=== PATIENT | male | born 1985 | race Caucasian/White ===

== ENCOUNTER 2016-11-28 23:27 | Emergency (ER) | payer OTHER ==
[~2016-11-28] VITALS: Ht 175.3 cm; Wt 153.5 kg
[2016-11-28 23:29] VITALS: BP 158/85; PULSE 79; TEMP 36.9; O2SAT 95; Ht 175.3 cm; Wt 153.5 kg
--- NOTE | 2016-11-29 02:03 | EMERGENCY ROOM VISIT NOTE ---
History Report prepared by Mikki: Nhna Handy Under the Supervision of: Dr. Enrique Licea D.O. First contact with patient: 23:42 Chief Complaint: ANKLE PAIN Stated Complaint: PAIN IN LEFT ANKLE, PAIN/NUMBNESS IN RT KNEE History of Present Illness The patient is a 31 year old male who presents to the Emergency Room with complaints of constant left ankle pain due to a fall beginning ten hours prior to arrival. He currently rates his discomfort as a 7/10 in severity. Pain is worse on the lateral aspect of his ankle. The patient states he fell down 3-4 steps earlier today. He was talking to his mom and he turned around and tripped and fell. He states he hit his head but did not lose consciousness. He does not take any blood thinners. The patient also associates intermittent right knee pain that has been going on for several months. The patient states his right knee will go numb intermittently with pins and needles. He currently has no right knee pain at this time. Pt denies hip pain, headache, change in vision, fevers, chest pain, shortness of breath, abdominal pain, nausea vomiting , blood in the urine. Patient has been ambulating without difficulty on his left ankle. Source of History: patient Onset: ten hours [employer] Position: ankle (left) Symptom Intensity: 7/10 Timing: constant Note: Associated symptoms: intermittent right knee pain. Review of Systems See HPI for pertinent positives & negatives. A total of 10 systems reviewed and were otherwise negative. Past Medical & Surgical Medical Problems: (1) TOBACCO USE DISORDER (2) Tonsillectomy Family History FH: cancer FH: diabetes mellitus FH: gallbladder disease FH: heart disease FH: hypertension FH: kidney disease FH: lung disease FH: seizures No significant family history Social History Smoking Status: Current Some Day Smoker Alcohol Use: occasionally Drug Use: none Marital Status: single Housing Status: lives with family Occupation Status: employed Allergies Coded Allergies: Amoxicillin (Verified Adverse Reaction, Mild, diarrhea, 11/28/16) Clavulanic Acid (Verified Adverse Reaction, Mild, diarrhea, 11/28/16) Physical Exam Vital Signs Date Time Temp Pulse Resp B/P Pulse Ox O2 Delivery O2 Flow Rate FiO2 11/28/16 23:29 36.9 79 20 158/85 95 Room Air Physical Exam GENERAL: alert, well appearing, well nourished, no distress, non-toxic HEAD: normal cephalic, atraumatic EYE EXAM: normal conjunctiva, PERRL and EOM's grossly intact OROPHARYNX: no exudate, no erythema, lips, buccal mucosa, and tongue normal and mucous membranes are moist NOSE: No septal hematoma NECK: supple, no nuchal rigidity, no adenopathy, non-tender CHEST: stable to compression anteriorly and posteriorly LUNGS: clear to auscultation. Normal chest wall mechanics HEART: no murmurs, S1 normal and S2 normal ABDOMEN: abdomen soft, non-tender, normo-active bowel sounds, no masses, no rebound or guarding. PELVIS: stable to compression anteriorly and posteriorly BACK: Back is symmetrical on inspection and there is no deformity, no midline tenderness, no CVA tenderness. UPPER EXTREMITIES: full active and passive range of motion of all joints without tenderness to palpation LOWER EXTREMITIES: Left ankle tenderness over the left later malleolus with mild swelling and medial malleolus. No tenderness at the base of the fifth metatarsal. No tenderness over the arch of the foot. Skin is intact. Achilles is intact. Full active and passive range of motion of all other joints without tenderness to palpation NEURO EXAM: Normal sensorium, cranial nerves II-XII grossly intact, normal speech, no gross weakness of arms, no gross weakness of legs. GCS: 15. Medical Decision & Procedures ER Provider Diagnostic Interpretation: XRAY:Left ankle: A 3 view study was reviewed, no acute fracture or dislocation was seen. XRAY:Right knee: A 3 view study was reviewed, no acute fracture or dislocation was seen. ED Course ED COURSE: Vital signs were reviewed and showed hypertension. The patients medical record was reviewed The above diagnostic studies were performed and reviewed. ED treatments and interventions as stated above. 2344: The patient was evaluated in room C11B. A complete history and physical examination was performed. 0020: Upon reevaluation, the patient is doing well.I discussed my findings with the patient and he understands and agrees with the treatment plan. Based on the patients age, coexisting illnesses, exam and lab findings the decision to treat as an outpatient was made. The patient remained stable while under my care. The patient appeared well at the time of discharge. Medical Decision Differential diagnoses include major intracranial, cervical, spinal, thoracic, abdominal, pelvic and neurologic injury. Fracture, contusion, sprain, strain, laceration, abrasions included as well. Patient is a 31-year-old male who presents following a mechanical fall on the steps at 1 PM today. He currently has no headache or neck pain. His exam is completely benign with exception of tenderness over the lateral aspect of his left malleolus and mild tenderness over his medial malleolus. He has been ambulating on his ankle all day. He is otherwise completed and neurologically intact. His GCS is 15. He is close to 10 hours out from the incident and has no headache or neck pain. I did not feel the need to CT his head at this time. His exam was otherwise completely benign. Declined Motrin. X-rays of his left ankle and right knee showed no acute fractures. I updated both the patient and his mother in regards to this. I gave him crutches and instructed him to wear a soft soled shoe/tennis shoe for the next 3-5 days. If he continues to have pain over the next 5 days he will need repeat x-rays to make sure we did not miss a hairline fracture. He was discharged with crutches and is able to bear weight as tolerated. While having pain and recommended using the crutches until his pain resolves. Mother requested a work note for today and tomorrow. I offered a note stating that the patient was seen in the ER and can bear weight as tolerated but could not write him an excuse. I informed her that it was up to him and his employer to decide whether he could work or not. Following this all their questions were answered and he was discharged with crutches. Discussed with Pt concerning signs and symptoms to watch out for. Pt was instructed to follow up with their PCP and discussed with the patient their option to return to the ED at anytime for persistent or worsening symptoms. The appropriate anticipatory guidance and out-patient management, including indications for return to the emergency department, were explained at length to the patient and understood. Shortly after they left I was notified that mom was upset because he did not get a excuse from work for today and tomorrow. Impression Primary Impression: Left ankle sprain Scribe Attestation The scribe's documentation has been prepared under my direction and personally reviewed by me in its entirety. I confirm that the note above accurately reflects all work, treatment, procedures, and medical decision making performed by me. Departure Information Dispostion Home / Self-Care Referrals No Doctor, Assigned (PCP) Forms HOME CARE DOCUMENTATION FORM, IMPORTANT VISIT INFORMATION Patient Instructions Ankle Sprain, My [facility] Additional Instructions Please follow up with your primary care doctor with in the next 24 hours. Any worsening of your symptoms, please return to the ED immediately. This includes increased pain or swelling, numbness or weakness in the leg or any other concerning signs or symptoms from your standpoint. If you continue to have pain over the next 5 days he will need repeat x-rays. Please weight-bear as tolerated. Please wear a loose tennis sneaker as needed for support. Problem Qualifiers Primary Impression: Left ankle sprain Encounter type: initial encounter Involved ligament of ankle: unspecified ligament Qualified Codes: S93.402A - Sprain of unspecified ligament of left ankle, initial encounter
--- NOTE | 2016-11-29 07:18 | DIAGNOSTIC IMAGING REPORT ---
RIGHT KNEE 3 VIEWS HISTORY: right knee pain Right COMPARISON: None. FINDINGS: There is no fracture or dislocation. Small knee effusion. No radiopaque foreign bodies. IMPRESSION: No fractures. Small knee effusion. Electronically signed by: Felix Paris M.D. 11/29/2016 7:16 AM Dictated Date/Time: 11/29/2016 7:14 AM
--- NOTE | 2016-11-29 07:19 | DIAGNOSTIC IMAGING REPORT ---
LEFT ANKLE 3 VIEWS HISTORY: Left ankle pain. COMPARISON: Left ankle 03/08/2016. FINDINGS: There is no fracture or dislocation. Diffuse soft tissue swelling. No radiopaque foreign bodies. IMPRESSION: No fractures. Electronically signed by: Felix Paris M.D. 11/29/2016 7:17 AM Dictated Date/Time: 11/29/2016 7:16 AM
== END 2016-11-29 00:30 | disposition home or self-care (01) ==
LOC: C.EDB 23:28 → C.EDC 11-29 00:30
DX: S93.402A Sprain of unspecified ligament of left ankle, initial encounter (principal); W10.9XXA Fall (on) (from) unspecified stairs and steps, initial encounter; F17.200 Nicotine dependence, unspecified, uncomplicated

== ENCOUNTER 2017-12-09 21:08 | Emergency (ER) | payer SELFPAY ==
[~2017-12-09] VITALS: Ht 175.3 cm; Wt 162.5 kg
[2017-12-09 21:47] VITALS: BP 136/79; PULSE 90; TEMP 36.8; O2SAT 95; Ht 175.3 cm; Wt 162.5 kg
--- NOTE | 2017-12-09 22:55 | EMERGENCY ROOM VISIT NOTE ---
History First contact with patient: 22:11 Chief Complaint: BACK PAIN Stated Complaint: BACK PAIN History of Present Illness The patient is a 32 year old male who presents to the Emergency Room with complaints of low back pain. 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 He states that the pain is sharp and knifelike and is located in the lower portion of the back on the right side. The pain does not radiate into his leg. It does radiate slightly up into the mid back. He rates the discomfort as 7/10 and states it is worse when he is sitting upright, or bending forward or side to side. He denies any bowel/bladder incontinence, numbness, weakness or paresthesias. He took 5 pills of 200 mg ibuprofen without relief. He denies any history of back problems, but does state that he goes to a chiropractor every 2 weeks to get his back adjusted on a preventative basis. He denies any abdominal pain, nausea, vomiting or urinary symptoms. Review of Systems A complete 10 point review of systems was reviewed with the patient with pertinent positives and negatives as per history of present illness. All else were negative. Past Medical/Surgical History Medical Problems: (1) TOBACCO USE DISORDER (2) Tonsillectomy Family History FH: cancer FH: diabetes mellitus FH: gallbladder disease FH: heart disease FH: hypertension FH: kidney disease FH: lung disease FH: seizures No significant family history Social History Smoking Status: Never Smoker Alcohol Use: occasionally Drug Use: none Marital Status: single Housing Status: lives with family Occupation Status: employed Physical Exam Vital Signs Date Time Temp Pulse Resp B/P (MAP) Pulse Ox O2 Delivery O2 Flow Rate FiO2 12/09/17 21:47 36.8 90 16 136/79 95 Room Air Physical Exam VITALS: Vitals are noted on the nurse's note and reviewed by myself. Vital signs stable. GENERAL: This is a 32-year-old male, in no acute distress, nondiaphoretic, well- developed well-nourished. SKIN: The skin was without rashes. HEART: Regular rate and rhythm without murmurs gallops or rubs. LUNGS: Clear to auscultation bilaterally without wheezes, rales or rhonchi. ABDOMEN: No tenderness to palpation. MUSCULOSKELETAL: There is mild tenderness to palpation in the right lumbar region. There is no tenderness over the lumbar spinous processes. Full range of motion of bilateral lower extremities. Patellar reflexes 2+. NEURO: Patient was alert and oriented to person place and time. Normal sensation of bilateral lower extremities. Medical Decision & Procedures Medical Decision Differential diagnosis includes cauda equina syndrome, cord compression, disc herniation, muscle spasm, lumbar strain, epidural abscess, malignancy, transverse myelitis, urinary tract infection, colitis, diverticulitis, kidney stone, among others. The patient was evaluated as above. He presents with right-sided low back pain. There is nothing to suggest cauda equina syndrome or cord compression on exam. I had a lengthy discussion with the patient regarding his symptoms. His pain is likely secondary to a musculoskeletal strain. I offered Flexeril, but the patient declined. I recommended some [id number]-utpmwqg treatments and other conservative measures. The patient will follow up with his primary care provider if symptoms do not improve or worsen. He understands to return here if he develops numbness, weakness, bowel/bladder incontinence or other new/ concerning symptoms. He verbalized understanding of my assessment and treatment plan and was discharged home in good condition. Medication Reconcilliation Current Medication List: was personally reviewed by me Blood Pressure Screening Patient's blood pressure: Normal blood pressure Impression Primary Impression: Strain of lumbar region Departure Information Dispostion Home / Self-Care Condition GOOD Referrals No Doctor, Assigned (PCP) Patient Instructions My [facility] Additional Instructions You have been treated in the Emergency Department for Back Pain. You should begin taking naproxen (Aleve) [id number] twice daily for the next 10-14 days. For pain control, you can use the following vubz-rhu-[id number] medicines (if >12 yo): -Extra strength (500 mg/tab) Tylenol (acetaminophen) 2 tabs every 6 hours as needed. Do not exceed 12 tablets in a 24 hour period. Avoid taking more than 4 grams (4000 mg) of Tylenol per day. This includes any other sources of acetaminophen you may take on a regular basis. A heating pad can be used over the area for continued soothing relief. You may also use mqos-zsm-oivmvdn icy hot or Ben[place] on the area. You should schedule a follow-up appointment in 2-3 days with your Primary Care Provider for further evaluation and treatment of your back pain. Return to the Emergency Department if your current symptoms worsen despite treatment course outlined above, or if you develop any of the following symptoms : intractable pain despite aforementioned treatment course, loss of control of your bowel or bladder, numbness or tingling in your groin, or development of a fever. Problem Qualifiers Primary Impression: Strain of lumbar region Encounter type: initial encounter Qualified Codes: S39.012A - Strain of muscle, fascia and tendon of lower back, initial encounter
== END 2017-12-09 23:08 | disposition home or self-care (01) ==
LOC: C.EDB 21:09 → C.EDD 23:08
DX: S39.012A Strain of muscle, fascia and tendon of lower back, initial encounter (principal); X58.XXXA Exposure to other specified factors, initial encounter; Y93.E6 Activity, residential relocation; Y99.0 Civilian activity done for income or pay; Z87.891 Personal history of nicotine dependence